=== PATIENT | female | born 1965 | race Caucasian/White ===

== ENCOUNTER → 2016-08-23 | Outpatient (CLI) | payer BC ==
--- NOTE | 2016-08-23 16:06 | MY ---
EXAMINATION: Bilateral digital mammography utilizing CAD. HISTORY: Screening exam. Comparison is made to previous studies dated 09/01/2015, 08/20/2014. FINDINGS: Bilateral scattered fibroglandular densities. No suspicious calcifications, masses or ar chitectural distortions. No pathologic appearing lymph nodes, no abnormal skin thickening or nippl e inversion. CAD highlighted regions appear normal at this time. IMPRESSION: BI-RADS category I - negative mammogram. Continued screening according to ACR-ACS gu idelines suggested. THE FALSE-NEGATIVE RATE OF MAMMOGRAM IS APPROXIMATELY 10%. MANAGEMENT OF A PALPABLE ABNORMALITY MUST BE BASED UPON CLINICAL GROUNDS. SENSITIVITY FOR DETECTION OF ABNORMALITIES IN DENSE BREASTS IS LOW. NOTE: A letter will be sent to the patient regarding findings. [facility] -- [place] [phone] - FAX [phone]
== END ==
LOC: MW.MAM 10:13
PROVIDERS: ATTEND Nurse Practitioner Women's Health
DX: Z12.31 Encounter for screening mammogram for malignant neoplasm of breast (principal)
CPT/HCPCS: G0202; G0202-26

== ENCOUNTER 2017-11-02 09:20 | Day surgery (SDC) | payer BC ==
[2017-11-02] MEDS ORDERED: Aloe Vera/Sodium Chloride Gel 14.1 GM Tube ONE (09:46)
[2017-11-02] MEDS ORDERED: Oxymetazoline 0.05% Nasal Spray 15 ML Bottle ONE ×2 (09:46→13:59)
[2017-11-02] MEDS ORDERED: Lidocaine 2% with EPINEPHrine 1:100,000 20 ML MDV ONE (09:46)
[2017-11-02] MEDS ORDERED: Lidocaine 1% 20 ML MDV ONE (09:47)
--- NOTE | 2017-11-02 09:59 | PCM.PREANE ---
Preanesthetic Assessment - Anesthesia/Transfusion/Family Hx Anesthesia History: Prior Anesthesia Without Reaction Family History of Anesthesia Reaction: No Transfusion History: No Prior Transfusion(s) - Review of Systems General: No Symptoms Pulmonary: No Symptoms Cardiovascular: No Symptoms Gastrointestinal: No Symptoms Neurological: No Symptoms Other: Reports: None - Physical Assessment NPO Status Date: 11/01/17 Height: 1.57 m Weight: 73.482 kg ASA Class: 2 Mental Status: Alert & Oriented x3 Airway Class: Mallampati = 1 Dentition: Reports: Normal Dentition ROM/Head Extension: Full Lungs: Clear to Auscultation, Normal Respiratory Effort - Allergies Allergies/Adverse Reactions: Allergies Allergy/AdvReac Type Severity Reaction Status Date / Time Sulfa (Sulfonamide Allergy Rash Verified 10/31/17 11:43 Antibiotics) - Anesthesia Plan Pre-Op Medication Ordered: None - Acknowledgements Anesthesia Type Planned: General Anesthesia Pt an Appropriate Candidate for the Planned Anesthesia: Yes Alternatives and Risks of Anesthesia Discussed w Pt/Guardian: Yes Pt/Guardian Understands and Agrees with Anesthesia Plan: Yes Additional Comments: PMH: HTN and thyroid replacement PreAnesthesia Questionnaire HEENT History: Reports: Allergic Rhinitis, Sinusitis Cardiovascular History: Reports: Hypertension Genitourinary History: Reports: UTI, Recurrent Musculoskeletal History: Reports: Fracture Other Musculoskeletal History: hx of fx clavicle Neurological History: Reports: Concussion Endocrine/Metabolic History: Reports: Hypothyroidism - Past Surgical History HEENT Surgical History: Reports: Tonsillectomy Female Surgical History: Reports: Section, D&C, Other (See Below) Other Female Surgeries/Procedures: ?? ureteral reimplantation - SUBSTANCE USE Smoking Status *Q: Never Smoker Recreational Drug Use History: No - HOME MEDS Home Medications: Home Meds Levothyroxine Sodium 88 mcg PO DAILY 10/31/17 [History] Montelukast Sodium [Singulair] 10 mg PO BEDTIME 10/31/17 [History] Nebivolol [Bystolic] 5 mg PO DAILY 10/31/17 [History] hydroCHLOROthiazide [Hydrochlorothiazide] 25 mg PO DAILY 10/31/17 [History] - CURRENT (IN HOUSE) MEDS Current Meds: Current Medications Discontinued Medications Lidocaine HCl (Xylocaine 1%) Confirm Administered Dose 20 ml .ROUTE .STK-MED ONE Stop: 11/02/17 09:48 Lidocaine/Epinephrine (Xylocaine 2% With Epinephrine 1:100,000) Confirm Administered Dose 20 ml .ROUTE .STK-MED ONE Stop: 11/02/17 09:47 Oxymetazoline HCl (Afrin Original 0.05% Nasal [place]) Confirm Administered Dose 15 ml .ROUTE .STK-MED ONE Stop: 11/02/17 09:47 Sodium Chloride ([place] Saline Nasal Gel) Confirm Administered Dose 14.1 gm .ROUTE .STK-MED ONE Stop: 11/02/17 09:47
[2017-11-02] MEDS ORDERED: Remifentanil 1 MG Vial ONE (10:35)
--- NOTE | 2017-11-02 10:40 | PCM.HPR ---
H & P Addendum review - H & P Addendum Review Date of Original H & P: 09/29/17 Date Reviewed: 11/02/17 Time Reviewed: 10:30 Patient was Examined: No Changes
[2017-11-02] MEDS ORDERED: Lidocaine 2% 5 ML SDV ONE ×2 (10:54→11:05)
[2017-11-02] MEDS ORDERED: fentaNYL 250 MCG/5 ML SDV ONE (10:55)
[2017-11-02] MEDS ORDERED: Propofol 200 MG/20 ML SDV ONE ×3 (10:55→12:24)
[2017-11-02] MEDS ORDERED: Midazolam 1 MG/ML 2 ML SDV ONE (10:55)
[2017-11-02] MEDS ORDERED: Sugammadex Sodium 200 MG/2 ML VIAL ONE (10:57)
[2017-11-02] MEDS ORDERED: HYDROmorphone 2 MG/ML SDV ONE (11:00)
--- NOTE | 2017-11-02 11:02 | PCM.OPNOTE ---
- General Post-Op/Procedure Note Condition: Good Free Text/Narrative:: Diagnosis: Nasal obstruction, deviated nasal septum, hypertrophy of inferior turbinates Procedure: Nasal septoplasty, reduction of bilateral inferior turbinates- Coblation Surgeon: Linette Dotson MD Anesthesia: GA Anesthesiologist: Beni DIAZ Date of procedure: 11/02/2017 Indications:Nasal obstruction, deviated nasal septum, hypertrophy of inferior turbinates Findings: Right deviated septum and posterior spur; buckled nasal septal cartilage at junction with the posterior bony septum An informed consent was obtained. A time out was performed and the patient was brought back to the operating room. Gen. anesthesia was administered with an endotracheal tube. The patient was then prepped and draped in a standard fashion. A 0 degree rigid nasal endoscope was used to examine bilateral nasal cavities and photo documentation was obtained. Bilateral inferior turbinates were infilatrated with 1% lidocaine - 3 mls were injected on each side. The left inferior turbinate was addressed first. A reflex PTR coblation wand with tip dipped in AYR Gel was used at setting of 6 :2 for Coblation and coagulation respectively. The point of entry was coagulated and wand was inserted till the third marking. Three cobb were created in the single channel. The inferior turbinate was visibly shrunk. Similar procedure was repeated on the right side with visible reduction in size of turbinates. Bilateral nasal cavities were then packed with oxymetazoline 0.05% soaked cottonoid pledgets. After an appropriate period of decongestion the pledgets were removed. Nasal septum was infiltrated with 2% lidocaine 1: 100, 000 epinephrine in a standard fashion-a total of 5 mils was used. Bilateral nasal cavities were packed with oxymetazoline 0.05% soaked cottonoid pledgets. The pledgets were then removed. A left sided [place] incision was performed. A left sided mucoperichondrial flap was elevated-dissection was commenced with 2 mm osteotome and further carried out with combination of harry and [place] elevators. Posteriorly the flap was continued as a muco periosteal flap. A posterior chondrotomy was performed. Right-sided mucoperiosteal flap was elevated. A vertical incision was made in the nasal septal cartilage 1.5 cm posterior to the caudal end of septum and contralateral mucoperichondrial flap was elevated. Floor of the septal cartilage was dissected off the maxillary crest A ortiz scissor was used and the perpendicular plate of the ethmoid was removed. The vomer along with left-sided spur was also removed. The part of nasal septal cartilage between the bony cartilaginous junction and posterior to the previously made vertical incision was removed revealing appropriate dorsal nasal support. Subsequent to this the nasal septum was positioned towards the midline. There was a very small tear along the floor on the left side. Flap incision was sutured with 3-0 plain gut on Yosef needle. Mattress sutures were also performed. Bilateral Martinez splints were inserted and held in place with 2.0 Prolene suture. Drip pad was applied. This concluded the procedure and the patient was turned over to the anesthesiologist for recovery. Specimens: none IV fluids: 1400 ml Blood loss: 5 mls Blood products: nil Disposition: PACU for recovery Follow up: In 1 week for removal of splints
[2017-11-02] MEDS ORDERED: Dexamethasone 4 MG/ML 5 ML MDV ONE (11:09)
[2017-11-02] MEDS ORDERED: fentaNYL 100 MCG/2 ML SDV ONE (11:36)
[2017-11-02] MEDS ORDERED: Lactated Ringers 1,000 ML IV SCH (11:45)
[2017-11-02] MEDS ORDERED: ePHEDrine 50 MG/ML SDV ONE (12:20)
[2017-11-02] MEDS ORDERED: Esmolol 100 MG/10 ML SDV ONE (12:29)
[2017-11-02] MEDS ORDERED: Acetaminophen 325 MG Tab PO PRN (13:39)
[2017-11-02] MEDS ORDERED: Ibuprofen 400 MG Tab PO PRN (13:39)
--- NOTE | 2017-11-02 14:39 | PCM.POSTAN ---
POST ANESTHESIA ASSESSMENT - MENTAL STATUS Mental Status: Alert, Oriented - RESPIRATORY Respiratory Status: Respiratory Rate WNL, Airway Patent, O2 Saturation Stable - CARDIOVASCULAR CV Status: Pulse Rate WNL, Blood Pressure Stable - GASTROINTESTINAL GI Status: No Symptoms - PAIN Pain Score: 0 - POST OP HYDRATION Hydration Status: Adequate & Stable
--- NOTE | 2017-11-02 16:14 | PCM48HPAN ---
Post Anesthesia Note - EVALUATION WITHIN 48HRS OF ANESTHETIC Vital Signs in Normal Range: Yes Patient Participated in Evaluation: Yes Respiratory Function Stable: Yes Airway Patent: Yes Cardiovascular Function Stable: Yes Hydration Status Stable: Yes Pain Control Satisfactory: Yes Nausea and Vomiting Control Satisfactory: Yes Mental Status Recovered: Yes Resp Rate: 16 - COMMENTS/OBSERVATIONS Free Text/Narrative:: nasal pad is still dry. no complaints regarding anesthesia care from today. home with .
== END 2017-11-02 16:30 | disposition home or self-care (01) ==
LOC: MW.SDS 09:20
PROVIDERS: ATTEND Otolaryngology
DX: J34.89 Other specified disorders of nose and nasal sinuses (principal); J34.2 Deviated nasal septum; J34.3 Hypertrophy of nasal turbinates; I10 Essential (primary) hypertension; E03.9 Hypothyroidism, unspecified; F41.9 Anxiety disorder, unspecified; Z79.899 Other long term (current) drug therapy; Z88.2 Allergy status to sulfonamides
CPT/HCPCS: 30140; 30520; 81025; A9270; J1100; J1170; J2250; J2704; J3010; J3490; J7120

== ENCOUNTER 2018-10-31 07:37 | Day surgery (SDC) | payer BC ==
[~2018-10-31 07:37] MED LIST: Lactated Ringers 1,000 ML IV SCH; Lidocaine 2% 5 ML SDV ONE; Propofol 200 MG/20 ML SDV ONE; Sodium Chloride 0.9% 10 ML SDV IV PRN; Sodium Chloride 0.9% 10 ML Syringe FLUSH PRN; Sodium Chloride 0.9% 2.5 ML Syringe FLUSH PRN; fentaNYL 100 MCG/2 ML SDV ONE
--- NOTE | 2018-10-31 09:05 | PCM.PREANE ---
Preanesthetic Assessment - Anesthesia/Transfusion/Family Hx Anesthesia History: Prior Anesthesia Without Reaction Family History of Anesthesia Reaction: No Transfusion History: No Prior Transfusion(s) - Review of Systems General: No Symptoms Pulmonary: No Symptoms Cardiovascular: No Symptoms Gastrointestinal: No Symptoms Neurological: No Symptoms Other: Reports: None - Physical Assessment NPO Status Date: 10/30/18 O2 Sat by Pulse Oximetry: 95 Respiratory Rate: 16 Vital Signs: Last Vital Signs Temp 97.0 F 10/31/18 09:01 Pulse 66 10/31/18 09:01 Resp 16 10/31/18 09:01 BP 116/68 10/31/18 09:01 Pulse Ox 95 10/31/18 09:01 Height: 5 ft 2 in Weight: 73.936 kg ASA Class: 2 Mental Status: Alert & Oriented x3 Airway Class: Mallampati = 2 Dentition: Reports: Normal Dentition ROM/Head Extension: Full Lungs: Clear to Auscultation, Normal Respiratory Effort Cardiovascular: Regular Rate, Regular Rhythm - Lab Values: Laboratory Last Values Urine HCG, Qual NEGATIVE (NEGATIVE) 10/31/18 08:35 - Allergies Allergies/Adverse Reactions: Allergies Allergy/AdvReac Type Severity Reaction Status Date / Time Sulfa (Sulfonamide Allergy Rash Verified 10/31/17 11:43 Antibiotics) - Blood Blood Available: No - Anesthesia Plan Pre-Op Medication Ordered: None - Acknowledgements Anesthesia Type Planned: General Anesthesia Pt an Appropriate Candidate for the Planned Anesthesia: Yes Alternatives and Risks of Anesthesia Discussed w Pt/Guardian: Yes Pt/Guardian Understands and Agrees with Anesthesia Plan: Yes Additional Comments: anes prob list-HTN PLAN: TIVA PreAnesthesia Questionnaire HEENT History: Reports: None Cardiovascular History: Reports: Hypertension Gastrointestinal History: Reports: Other (See Below) Other Gastrointestinal History: occasional heartburn- takes TUMS Genitourinary History: Reports: UTI, Recurrent 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: Musculoskeletal History: Reports: Fracture Other Musculoskeletal History: hx of fx clavicle Neurological History: Reports: Concussion, Head Trauma, Vertigo, Other (See Below) Other Neuro History: hx of motion sickness, some balance issues after head trauma in 2011 Endocrine/Metabolic History: Reports: Hypothyroidism - Past Surgical History HEENT Surgical History: Reports: Naso-Sinus Surgery, Tonsillectomy Female Surgical History: Reports: Section, D&C, Tubal Ligation, Other (See Below) Other Female Surgeries/Procedures: bilateral ureteral reimplantation Neurological Surgical History: Reports: None - SUBSTANCE USE Smoking Status *Q: Never Smoker Recreational Drug Use History: No - HOME MEDS Home Medications: Home Meds Levothyroxine Sodium 88 mcg PO DAILY 10/31/17 [History] Montelukast Sodium [Singulair] 10 mg PO BEDTIME 10/31/17 [History] Nebivolol [Bystolic] 5 mg PO DAILY 10/31/17 [History] hydroCHLOROthiazide [Hydrochlorothiazide] 25 mg PO DAILY 10/31/17 [History] - CURRENT (IN HOUSE) MEDS Current Meds: Current Medications Lactated Ringer's (Ringers, Lactated) 1,000 mls @ 125 mls/hr IV ASDIRECTED CHAPO Last Admin: 10/31/18 08:59 Dose: 125 mls/hr Sodium Chloride (Saline Flush) 10 ml FLUSH ASDIRECTED PRN PRN Reason: Keep Vein Open Sodium Chloride (Saline Flush) 2.5 ml FLUSH ASDIRECTED PRN PRN Reason: Keep Vein Open Sodium Chloride (Saline Flush) 10 ml FLUSH ASDIRECTED PRN PRN Reason: Keep Vein Open Sodium Chloride (Saline Flush) 2.5 ml FLUSH ASDIRECTED PRN PRN Reason: Keep Vein Open Sodium Chloride (Normal Saline) 10 ml IV ASDIRECTED PRN PRN Reason: IV Use Discontinued Medications Fentanyl (Sublimaze) Confirm Administered Dose 100 mcg .ROUTE .STK-MED ONE Stop: 10/31/18 07:08 Lidocaine (Xylocaine-Mpf 2%) Confirm Administered Dose 5 ml .ROUTE .STK-MED ONE Stop: 10/31/18 07:08 Propofol (Diprivan 20 Ml) Confirm Administered Dose 400 mg .ROUTE .STK-MED ONE Stop: 10/31/18 07:08
--- NOTE | 2018-10-31 10:53 | PCM.OPNOTE ---
- General Post-Op/Procedure Note Date of Surgery/Procedure: 10/31/18 Operative Procedure(s): Colonoscopy Findings: Normal colonoscopy Pre Op Diagnosis: Screening colonoscopy Post-Op Diagnosis: Normal colonoscopy Anesthesia Technique: MAC Primary Surgeon: Daniela Jett Condition: Good
--- NOTE | 2018-10-31 11:09 | PCM48HPAN ---
Post Anesthesia Note - EVALUATION WITHIN 48HRS OF ANESTHETIC Vital Signs in Normal Range: Yes Patient Participated in Evaluation: Yes Respiratory Function Stable: Yes Airway Patent: Yes Cardiovascular Function Stable: Yes Hydration Status Stable: Yes Pain Control Satisfactory: Yes Nausea and Vomiting Control Satisfactory: Yes Mental Status Recovered: Yes Resp Rate: 16
--- NOTE | 2018-10-31 11:09 | PCM.POSTAN ---
POST ANESTHESIA ASSESSMENT - MENTAL STATUS Mental Status: Alert, Oriented - RESPIRATORY Respiratory Status: Respiratory Rate WNL, Airway Patent, O2 Saturation Stable - CARDIOVASCULAR CV Status: Pulse Rate WNL, Blood Pressure Stable - GASTROINTESTINAL GI Status: No Symptoms - POST OP HYDRATION Hydration Status: Adequate & Stable
--- NOTE | 2018-11-01 12:59 | OR ---
SURGEON: DANIELA JETT MD DATE OF PROCEDURE: 10/31/2018 PREOPERATIVE DIAGNOSIS: Screening colonoscopy. POSTOPERATIVE DIAGNOSIS: Normal colonoscopy. PRIMARY SURGEON: Daniela Jett MD. ANESTHESIA: MAC. INSTRUMENT USED: Olympus colonoscope. EXTENT OF EXAM: To the cecum. PREPARATION: Good. LIMITATIONS: None. INDICATION FOR EXAMINATION: The patient is a 53-year-old female who presents for a screening colonoscopy. I explained the procedure; expected perioperative course; and risks including bleeding, infection, or damage to surrounding structures including perforation. The patient verbalized understanding and wishes to proceed. PROCEDURE IN DETAIL: The patient was brought into the endoscopy suite and placed on the table in a left lateral decubitus position. A time-out was completed verifying the patient's name, age, date of , allergies, and procedure to be performed. Monitored anesthesia care was induced and continuous oxygen was provided via nasal cannula throughout the procedure. After adequate sedation was achieved, a digital rectal exam was performed. This exam was within normal limits. A well- lubricated colonoscope was inserted in the rectum and advanced under direct visualization to the level of the cecum. The cecum was identified by both visual and anatomic landmarks. A photograph was taken of the cecal cap as well as with the scope retroflexed within the cecum. The scope was then fully withdrawn while examining the color, texture, anatomy, and integrity of the mucosa from the cecum to the anal canal. The findings were consistent with normal colonic mucosa. The scope was then brought into the rectum and retroflexed to allow visualization of the anal canal opening. This appeared normal and a photograph was taken. The scope was then straightened out and fully withdrawn. The cecum to anus time was 8 minutes. The patient tolerated the procedure well and was transferred to the PACU in stable condition. ENDOSCOPIC DIAGNOSIS: Normal colonoscopy. RECOMMENDATIONS: Follow up in clinic in 10 years. DUGLAS / BARBARA /[id number]
== END 2018-10-31 11:25 | disposition home or self-care (01) ==
LOC: MW.SDS 07:37
PROVIDERS: ATTEND Surgery
DX: Z12.11 Encounter for screening for malignant neoplasm of colon (principal); I10 Essential (primary) hypertension; E03.9 Hypothyroidism, unspecified; Z88.2 Allergy status to sulfonamides
CPT/HCPCS: 45378; 81025; J2001; J2704; J3010; J7120; 00812